=== PATIENT | female | born 1990 | race Caucasian/White ===

== ENCOUNTER 2019-05-01 16:05 | Outpatient (CLI) | payer MEDICAID ==
--- NOTE | 2019-05-01 17:11 | Non Stress Test Report ---
Non Stress Test Datetime Report Generated by CPN: 05/01/2019 17:10 DEMOGRAPHIC EGA NST: 38.4 INDICATION Indication for Study: Ordered by Provider Indication for Study (NST) Other: iugr VITAL SIGNS Temperature - NST: 98.0 RESP - NST: 12 MONITORING Monitor Explained: Monitor Explained; Test Explained; Patient Verbalized Understanding Time on Monitor: 05/01/2019 16:25 Time off Monitor: 05/01/2019 16:49 NST Duration: 24 NST INTERVENTIONS NST Interventions: PO Hydration Physician Notified NST: Dr. Franco BABY A: [id number] BABY A Movement : Present Contraction Frequency : none FHR Baseline : 130 Accelerations : 15X15 Decelerations : None Variability : Moderate 6-25bpm NST Review: Meets Criteria for Reactive NST NST Review and Verified By : Randee Shanks RN NST Results: Reactive NST REPORT Report Trigger: Send Report
== END 2019-05-01 17:18 | disposition home or self-care (01) ==
LOC: LC 16:05
PROVIDERS: ATTEND Student in an Organized Health Care Education/Training Program
DX: O36.8330 Maternal care for abnormalities of the fetal heart rate or rhythm, third trimester, not applicable or unspecified (principal); Z3A.38 38 weeks gestation of pregnancy; Z87.891 Personal history of nicotine dependence
CPT/HCPCS: 59025

== ENCOUNTER 2019-05-06 18:17 | Inpatient (IN) | payer MEDICAID ==
[2019-05-06] MEDS ORDERED: OXYTOCIN/NORMAL SALINE 20 UNIT/1,000 ML RTUINJ IV PRN (18:52)
[2019-05-06] MEDS ORDERED: DINOPROSTONE 10 MG VAGINAL INSERT.SR PV PRN (18:52)
[2019-05-06] MEDS ORDERED: RINGERS SOLUTION,LACTATED 300 ML IV ONE (18:52)
[2019-05-06] MEDS ORDERED: RINGERS SOLUTION,LACTATED 1,000 ML IV PRN (18:52)
[2019-05-06 19:29] LABS: ABSOLUTE EOSINOPHILS # (AUTO) 0.1 10^3/uL (0.0-0.6); ABSOLUTE LYMPHOCYTES (AUTO) 2.9 10^3/uL (0.5-4.7); ABSOLUTE MONOCYTES (AUTO) 1.1 10^3/uL (0.1-1.4); ABSOLUTE NEUT (AUTO) 5.3 10^3/uL (1.7-8.2); BASOPHILS % (AUTO) 0.3 % (0-2); EOSINOPHILS % (AUTO) 0.7 % (0-6); HEMATOCRIT 34.7 % (36.0-47.0); HEMOGLOBIN 12.1 g/dL (12.0-15.5); LYMPHOCYTES % (AUTO) 31.3 % (13-45); MEAN CORPUSCULAR HEMOGLOBIN 31.2 pg (27.0-33.4); MEAN CORPUSCULAR HGB CONC 34.9 g/dL (32.0-36.0); MEAN CORPUSCULAR VOLUME 89 fl (80-97); MONOCYTES % (AUTO) 11.8 % (3-13); PLATELET COUNT 365 10^3/uL (150-450); RED BLOOD COUNT 3.89 10^6/uL (3.72-5.28); RED CELL DISTRIBUTION WIDTH 13.6 % (11.5-14.0); SEGMENTED NEUTROPHILS % (AUTO) 55.9 % (42-78); TOTAL CELLS COUNTED % (AUTO) 100 %; WHITE BLOOD COUNT 9.4 10^3/uL (4.0-10.5)
[2019-05-06] MEDS ORDERED: OXYTOCIN/NORMAL SALINE 20 UNIT/1,000 ML RTUINJ ONE (19:59)
[2019-05-06] MEDS ORDERED: LIDOCAINE 1% INJ-PF (10 MG/ML) 30 ML SDV ONE (19:59)
[2019-05-06] MEDS ORDERED: OXYTOCIN 10 UNIT/ML VIAL ONE (19:59)
[2019-05-06] MEDS ORDERED: MISOPROSTOL 0.2 MG TABLET ONE (19:59)
[2019-05-06] MEDS ORDERED: DINOPROSTONE 10 MG VAGINAL INSERT.SR ONE (19:59)
--- NOTE | 2019-05-06 21:33 | Admission Physical ---
Datetime Report Generated by CPN: 05/06/2019 21:33 CURRENT ADMISSION Chief Complaint: Scheduled Induction of Labor Indication for Induction: IUGR Admit Impression : Induction of Labor; Observation/Evaluation Admit Plan: Admit to Unit; Initiate Labor Induction Protocol ALLERGIES Medication Allergies: No Medication Allergies: No Known Allergies (05/01/2019) Latex: No Latex Allergies OBSTETRICAL HISTORY EDC: 05/11/2019 00:00 : 1 Para: 0 Term: 0 : 0 SAB: 0 IAB: 0 Ectopic: 0 Livin Cesareans: 0 VBACs: 0 Multiple Births: 0 Gestational Diabetes: No Rh Sensitization: No Incompetent Cervix: No ELMER: No Infertility: No ART Treatment: No Uterine Anomaly: No IUGR: No Hx Previous C/S: No Macrosomia: No Hx Loss/Stillborn: No PIH: No Hx : No Placenta Previa/Abruption: No Depression/PP Depression: No PTL/PROM: No Post Hemorrhage: No Obstetrical History Comments: G1: current IUGR 7% SEE RECORDS Alcohol: No Marijuana : No Cocaine: No Other Illicit Drugs: No Cigarettes: Former Smoker. [id number] MEDICAL HISTORY Diabetes: No Blood Transfusion: No Pulmonary Disease (Asthma, TB): No Breast Disease: No Hypertension: No Whizzer Surgery: No Heart Disease: No Hosp/Surgery: No Autoimmune Disorder: No Anesthetic Complications: No Kidney Disease: No Abnormal Pap Smear: No Neuro/Epilepsy: No Psychiatric Disorders: No Other Medical Diseases: No Hepatitis/Liver Disease: No Significant Family History: No Varicosities/Phlebitis: No Trauma/Violence : No Thyroid Dysfunction: No INFECTIOUS HISTORY Gonorrhea: No Genital Herpes: No Chlamydia: No Tuberculosis: No Syphilis: No Hepatitis: No HIV/AIDS Exposure: No Rash or Viral Illness: No HPV: Yes PHYSICAL EXAM General: Normal HEENT: Normal Neurologic: Normal Thyroid: Normal Heart: Normal Lungs: Normal Breast: Deferred Back: Normal Abdomen: Normal Genitourinary Exam: Normal Extremities: Normal DTRs: Normal Pelvic Type: Adequate Vital Signs: Reviewed VAGINAL EXAM Dilatation: 1 Effacement: 0 Station: -3 MEMBRANES Pooling: Negative Membranes: Intact FETUS A EGA: 39.2 Monitoring: External US FHR- Baseline: 120 Variability: Moderate 6-25bpm FHR Category: Category I Presentation: Vertex PLANS FOR LABOR AND DELIVERY Labor and Delivery: None Pain Management: Epidural Feeding Preference: Breast Benefit of Breast Feed Discussed: Yes Circumcision: Yes INFORMED CONSENT Signature: with User ID: [email or web address]
[2019-05-07] MEDS ORDERED: PROMETHAZINE HCL INJ 25 MG/1 ML VIAL IV ONE (09:04)
[2019-05-07] MEDS ORDERED: NALBUPHINE HCL INJ 10 MG/1 ML AMPULE INJ ONE (09:04)
[2019-05-07] MEDS ORDERED: PROMETHAZINE HCL INJ 25 MG/1 ML VIAL ONE (09:08)
[2019-05-07] MEDS ORDERED: NALBUPHINE HCL INJ 10 MG/1 ML AMPULE ONE (09:08)
[2019-05-07] MEDS ORDERED: OXYTOCIN/NORMAL SALINE 20 UNIT/1,000 ML RTUINJ IV PRN ×2 (09:53→19:48)
[2019-05-07] MEDS ORDERED: FENTANYL CITRATE INJ/PF 100 MCG/2 ML AMPUL ONE (10:16)
[2019-05-07] MEDS ORDERED: PHENYLEPHRINE HCL INJ/PF 10 MG/1 ML SDV ONE (10:16)
[2019-05-07] MEDS ORDERED: FENTANYL/BUPIVACAINE/NS/PF 300 MCG/150 ML RTUINJ EPI ONE (10:17)
[2019-05-07] MEDS ORDERED: LIDOCAINE 1.5%/EPINEPHRINE INJ 5 ML AMP ONE (10:17)
[2019-05-07] MEDS ORDERED: EPHEDRINE SULFATE INJ 50 MG/1 ML AMPULE ONE (10:17)
[2019-05-07] MEDS ORDERED: BUPIVACAINE HCL 0.25 % INJ/PF (2.5 MG/1 ML) 30 ML VIAL ONE (10:17)
[2019-05-07] MEDS ORDERED: AMPICILLIN SOD/SULBACTAM 3 GM VIAL ONE (19:32)
[2019-05-07] MEDS ORDERED: ACETAMINOPHEN 325 MG TABLET ONE (19:32)
[2019-05-07] MEDS ORDERED: BENZOCAINE/MENTHOL AEROSOL SPRAY 56 ML TOP PRN (19:48)
[2019-05-07] MEDS ORDERED: DIPH/PERTUSS(ACELL)/TETANUS VAC/PF 0.5 ML SYR (>=10YO) IM PRN (19:48)
[2019-05-07] MEDS ORDERED: NA PHOS,M-B/NA PHOS,DI-BA (ADULT) 133 ML ENEMA PR PRN (19:48)
[2019-05-07] MEDS ORDERED: MEASLES,MUMPS&RUBELLA VACC/PF 0.5 ML VIAL SUBCUT PRN (19:48)
[2019-05-07] MEDS ORDERED: DIPHENHYDRAMINE HCL 25 MG CAPSULE PO PRN (19:48)
[2019-05-07] MEDS ORDERED: ZOLPIDEM TARTRATE 5 MG TABLET PO PRN (19:48)
[2019-05-07] MEDS ORDERED: MAGNESIUM HYDROXIDE SUSP 30 ML UDCUP PO PRN (19:48)
[2019-05-07] MEDS ORDERED: PSEUDOEPHEDRINE HCL 30 MG TABLET PO PRN (19:48)
[2019-05-07] MEDS ORDERED: ACETAMINOPHEN 650 MG SUPP.RECT PR PRN (19:48)
[2019-05-07] MEDS ORDERED: PROMETHAZINE HCL INJ 25 MG/1 ML VIAL IV PRN (19:48)
[2019-05-07] MEDS ORDERED: PROMETHAZINE HCL 25 MG SUPP.RECT PR PRN (19:48)
[2019-05-07] MEDS ORDERED: DIBUCAINE 1% OINTMENT 56 GM TP PRN (19:48)
[2019-05-07] MEDS ORDERED: ACETAMINOPHEN WITH CODEINE #3 TABLET PO PRN ×2 (19:48)
[2019-05-07] MEDS ORDERED: GLYCERIN/WITCH HAZEL LEAF 1 EACH MED..WIPE TP PRN (19:48)
[2019-05-07] MEDS ORDERED: PROMETHAZINE HCL 25 MG TABLET PO PRN (19:48)
[2019-05-07] MEDS ORDERED: AMPICILLIN SOD/SULBACTAM 3 GM VIAL IV SCH (20:30)
[2019-05-07] MEDS: FAMOTIDINE 20 MG TABLET PO SCH (22:15)
[2019-05-07] MEDS: IBUPROFEN 800 MG TABLET PO SCH (22:15)
--- NOTE | 2019-05-07 23:49 | Delivery Summary ---
Del Sum A-C Datetime Report Generated by CPN: 05/07/2019 23:48 DELIVERY PERSONNEL DELIVERY PERSONNEL: [id number] Delivery Doctor:: Marissa Kan MD Labor and Delivery Nurse:: Miranda Chan RNfarmer tree fruit and nut crops Nurse:: Bennett Pittman RN Supervisor [employer]:: Susan Gómez RN Nursery Nurse:: Estefanía Shane RN Nursery Nurse:: Xochitl Don RN Assistant Professor Of Biology/POTABLE WATER TREATMENT OPERATOR: Susannah Boudreaux, ST MATERNAL INFORMATION Delivery Anesthesia: Epidural Medications After Delivery: Pitocin Bolus-Please Comment; Pitocin Drip 20 Units/1000ml NSS Meds After Delivery Comment: Pitocin 20 units in 1 L NS bolusing per order Delivery QBL: 150 Maternal Complications: Maternal Fever Provider Comments: Kiwi applied at flexion point x 2 PO. Delivery after within 4 contractions. FHTs continosly monitored during 2nd stage and decels noted that resolved with minimal interventions. Scalp stim positive throughout delivery. LABOR SUMMARY EDC: 05/11/2019 00:00 No. Babies in Womb: 1 Attempted: No Labor Anesthesia: Epidural LABOR INFORMATION Reason for Induction: Intrauterine Growth Retardation Onset of Labor: 05/07/2019 09:00 Complete Dilatation: 05/07/2019 18:47 Cervical Ripening Agents: Cervidil Oxytocin: Induction Group B Beta Strep: negative Antibiotics # of Doses: 0 Steroids Given: None Reason Steroids Not Administered: Not Applicable MEMBRANES Membranes Rupture Method: Spontaneous Rupture of Membranes: 05/07/2019 08:35 Length of Rupture (hr): 10.88 Amniotic Fluid Color: Clear Amniotic Fluid Amount: Small Amniotic Fluid Odor: Normal STAGES OF LABOR Stage 1 hr: 9 Stage 1 min: 47 Stage 2 hr: 0 Stage 2 min: 41 Stage 3 hr: 0 Stage 3 min: 3 Total Time in Labor hr: 10 Total Time in Labor min: 31 VAGINAL DELIVERY Episiotomy: None Laceration #1: Periurethral Other Laceration: abrasion Laceration Repair: No Sponge Count Correct: N/A CSECTION DELIVERY Primary Indication: N/A Secondary Indication: N/A CSection Incidence: N/A Labor: N/A Elective: N/A CSection Incision: N/A BABY A INFORMATION Delivery Date/Time: 05/07/2019 19:28 Method of Delivery: Vaginal Born in Route : No : N/A Forceps: N/A Vacuum Extraction: Failed Shoulder Dystocia : No ASSISTED DELIVERY BABY A Indication for Assisted Delivery: nonreassuring FHTs Station Vacuum/Forcep Apply: 3 Position Vacuum/Forcep Apply: Right Occipital Anterior Vacuum Number of Pulls: 2 Vacuum Number of PopOffs: 2 Vacuum Maximum Pressure Obtained: 500mmhg Reduce Pressure btwn Ctx: Yes Vacuum Assistant Professor Of Biology: kiwi Total Time Vacuum Applied: 100 PRESENTATION/POSITION BABY A Presentation: Cephalic Cephalic Presentation: Vertex Vertex Position: Right Occipital Anterior Breech Presentation: N/A PLACENTA INFORMATION BABY A Placenta Delivery Time : 05/07/2019 19:31 Placenta Method of Delivery: Spontaneous Placenta Status: Delivered SCORES BABY A Heart Rate 1 min: >100 bpm Resp Effort 1 min: Slow, Irregular Reflex Irritability 1 min: Grimace Muscle Tone 1 min: Flaccid Color 1 min: Blue/Pale Resuscitation Effort 1 min: Tactile Stimulation SCORE 1 MIN: 4 Heart Rate 5 min: Slow, Below 100 bpm Resp Effort 5 min: Absent Reflex Irritability 5 min: No Response Muscle Tone 5 min: Flaccid Color 5 min: Blue/Pale Resuscitation Effort 5 min: PPV/NCPAP; Chest Compression SCORE 5 MIN: 1 Heart Rate 10 min: >100 bpm Resp Effort 10 min: Slow, Irregular Reflex Irritability 10 min: Grimace Muscle Tone 10 min: Some Flexion of Extremities Color 10 min: Completely [place] Resuscitation Effort 10 min: Oxygen SCORE 10 MIN: 7 INFORMATION BABY A Gestational Age at Delivery: 39.3 Gestational Status: Full Term- 39- 40.6 Weeks Outcome : Liveborn Infant Sex: Male IDENTIFICATION BABY A Infant Verification Date/Time: 05/07/2019 19:43 ID Band Number: [id number] Mother's Name Verified: Yes RN Verifying : Parul Pittman RN Additional Verifying Personnel: Mary Jane Gómez RN WEIGHT/LENGTH BABY A Infant Birthweight (gm): 2584 Weight (lb): 5 Infant Weight (oz): 11 Length (in): 19.00 Length (cm): 48.26 CORD INFORMATION BABY A No. Cord Vessels: 3 Nuchal Cord : Around Neck x1, Tight Cord Blood Taken: Yes-For Storage (Mom's Blood type +) Infant Suction: Mouth; Nose ASSESSMENT BABY A Skin to Skin: No BABY B INFORMATION : N/A SIGNATURES Signature: with User ID: [email or web address]
[2019-05-08] MEDS: AMPICILLIN SODIUM/SULBACTAM NA 3 GM in NORMAL SALINE 100 ML IV SCH ×2 (02:40→11:10)
[2019-05-08] MEDS: IBUPROFEN 800 MG TABLET PO SCH ×3 (05:04→21:53)
[2019-05-08 06:50] LABS: HEMOGLOBIN 10.7 g/dL (12.0-15.5); MEAN CORPUSCULAR HEMOGLOBIN 31.1 pg (27.0-33.4); MEAN CORPUSCULAR HGB CONC 34.5 g/dL (32.0-36.0); MEAN CORPUSCULAR VOLUME 90 fl (80-97); PLATELET COUNT 286 10^3/uL (150-450); RED BLOOD COUNT 3.44 10^6/uL (3.72-5.28); RED CELL DISTRIBUTION WIDTH 13.8 % (11.5-14.0); WHITE BLOOD COUNT 11.3 10^3/uL (4.0-10.5)
--- NOTE | 2019-05-08 10:03 | PDOC PROGRESS REPORT ---
Subjective-OB Progress Note for:: 05/08/19 Subjective: Pt in NICU holding baby. She reports light bleeding, reg diet and no difficulty voiding. Physical Exam (OB) Vital Signs: Temp Pulse Resp BP Pulse Ox 97.6 F 74 18 113/71 99 05/08/19 07:42 05/08/19 07:42 05/08/19 04:15 05/08/19 07:42 05/08/19 07:42 Intake & Output 05/07/19 05/08/19 05/09/19 06:59 06:59 06:59 Weight 87.4 kg - Abdomen Description: Tender, Soft Hernia Present: No Fundal Description: Firm, Midline Fundal Height: u/u - u/2 Objective-Diagnostic Laboratory: 05/08/19 06:23 05/08/19 06:23 WBC 11.3 H RBC 3.44 L Hgb 10.7 L Hct 31.0 L MCV 90 MCH 31.1 MCHC 34.5 RDW 13.8 Plt Count 286 Assessment and Plan(PN) - Assessment and Plan (1) Vaginal delivery Is this a current diagnosis for this admission?: Yes - Time Spent with Patient Time with patient: Less than 15 minutes Medications reviewed and adjusted accordingly: Yes - Disposition Anticipated Discharge: Home Within: within 24 hours
[2019-05-08] MEDS: PRENATAL VITAMIN W DHA CAPSULE PO SCH (10:58)
[2019-05-08] MEDS: FAMOTIDINE 20 MG TABLET PO SCH ×2 (10:58→21:53)
[2019-05-08] MEDS: SENNOSIDES/DOCUSATE 8.6-50 MG 1 EACH TABLET PO SCH (10:58)
[2019-05-08] MEDS: FERROUS SULFATE 325 MG TABLET PO SCH ×2 (10:58→19:23)
[2019-05-08] MEDS: DOCUSATE SODIUM 100 MG CAPSULE PO SCH ×2 (10:59→19:23)
[2019-05-09 08:14] VITALS: BP 102/50
--- NOTE | 2019-05-09 10:42 | PDOC PROGRESS REPORT ---
Subjective-OB Progress Note for:: 05/09/19 Subjective: Ready for discharge. Physical Exam (OB) Vital Signs: Temp Pulse Resp BP Pulse Ox 98.5 F 70 15 102/50 L 99 05/09/19 08:13 05/09/19 08:13 05/09/19 08:13 05/09/19 08:13 05/09/19 08:13 Intake & Output 05/08/19 05/09/19 05/10/19 06:59 06:59 06:59 Intake Total 100 600 Balance 100 600 - PIH/Pre-Eclampsia DTR's: 2 + Clonus: Negative Headache: Absent Epigastric Pain: No Visual Changes: No - Lochia Lochia Amount: Scant < 10 ml Lochia Color: Rubra/Red - Abdomen Description: Tender, Soft, Round Hernia Present: No Bowel Sounds: Normoactive Flatus Presence: Present Stool: No Fundal Description: Firm, Midline Fundal Height: u/u - u/2 Objective-Diagnostic Laboratory: 05/08/19 06:23 Assessment and Plan(PN) - Time Spent with Patient Medications reviewed and adjusted accordingly: Yes - Disposition Anticipated Discharge: Home
--- NOTE | 2019-05-09 10:49 | PDOC DISCHARGE SUMMARY ---
Final Diagnosis Discharge Date: 05/09/19 - Final Diagnosis (1) Vacuum extraction, delivered, current hospitalization Is this a current diagnosis for this admission?: Yes (2) IUGR (intrauterine growth retardation), delivered, current hospitalization Is this a current diagnosis for this admission?: Yes (3) Is this a current diagnosis for this admission?: Yes (4) Vaginal delivery Is this a current diagnosis for this admission?: Yes Discharge Data - Discharge Medication Home Medications: Pnv No.95/Ferrous Fum/Folic AC [ Multivitamin Tablet] 1 tab PO DAILY 05/01/19 Gestational Age: 39.3 wks Reason(s) for Admission: Induction of Labor Procedures: Ultrasound Intrapartum Procedure(s): Vacuum Extraction - [place] Data Baby 1 Male at 1 minute: 4 at 5 minutes: 1 at 10 minutes: 7 Weight: 2.58 kg Home with Mother: No Complications: Yes - IUGR - Diagnosis Test Laboratory: Temp Pulse Resp BP Pulse Ox 98.5 F 70 15 102/50 L 99 05/09/19 08:13 05/09/19 08:13 05/09/19 08:13 05/09/19 08:13 05/09/19 08:13 05/06/19 05/08/19 19:10 06:23 RBC 3.89 3.44 L Hgb 12.1 10.7 L Hct 34.7 L 31.0 L - Discharge information/Instructions Discharge Activity: Activity As Tolerated, Balance Activity w/Rest, Pelvic Rest, Slowly Increase Activity, No tub bath Discharge Diet: Regular Disposition: HOME, SELF-CARE Follow up with: [facility] in: 4, Weeks
[2019-05-09] MEDS: IBUPROFEN 800 MG TABLET PO SCH ×2 (10:53→13:08)
[2019-05-09] MEDS: SENNOSIDES/DOCUSATE 8.6-50 MG 1 EACH TABLET PO SCH (10:55)
[2019-05-09] MEDS: FERROUS SULFATE 325 MG TABLET PO SCH (10:55)
[2019-05-09] MEDS: FAMOTIDINE 20 MG TABLET PO SCH (10:55)
[2019-05-09] MEDS: DOCUSATE SODIUM 100 MG CAPSULE PO SCH (10:55)
[2019-05-09] MEDS: PRENATAL VITAMIN W DHA CAPSULE PO SCH (10:55)
[2019-05-10 07:37] LABS: HEPATITIS C VIRUS AB <0.1 s/co ratio (0.0-0.9)
== END 2019-05-09 14:58 | disposition home or self-care (01) | DRG 806 ==
LOC: LR 18:17 → 2S 05-07 21:40
PROVIDERS: ADMIT Obstetrics & Gynecology; ATTEND Obstetrics & Gynecology
PROC: 10D07Z6 Extraction of Products of Conception, Vacuum, Via Natural or Artificial Opening (ICD-10-PCS; principal; 2019-05-07)
PROC: 3E033VJ Introduction of Other Hormone into Peripheral Vein, Percutaneous Approach (ICD-10-PCS; 2019-05-07)
PROC: 4A1HX4Z Monitoring of Products of Conception, Cardiac Electrical Activity, External Approach (ICD-10-PCS; 2019-05-07)
DX: O36.5930 Maternal care for other known or suspected poor fetal growth, third trimester, not applicable or unspecified (principal); O75.2 Pyrexia during labor, not elsewhere classified; Z37.0 Single live birth; O76 Abnormality in fetal heart rate and rhythm complicating labor and delivery; Z3A.39 39 weeks gestation of pregnancy; O69.1XX0 Labor and delivery complicated by cord around neck, with compression, not applicable or unspecified
CPT/HCPCS: 36415; 85025; 85027; 86592; 86803; 86804; 86850; 86900; 86901; 88307; 94760; J0295; J2300; J2370; J2550; J2590; J3010; J3490; J7050